=== PATIENT | male | born 1945 | race Two or more races ===

== ENCOUNTER 2025-04-21 10:11 | Inpatient (IN) | payer MEDICARE, MEDICAID ==
[~2025-04-21] VITALS: Ht 152.4 cm; Wt 52.1 kg
--- NOTE | 2025-04-21 10:42 | ED.PDOC ---
History of Present Illness HPI Comments 79-year-old male presents to the ER in a wheelchair being pushed by daughter and with prior medical history of transverse myelitis associated with the chief complaint of head discomfort. Daughter reports on the patient having sharp electric jolts on the left side of his head which has been worsening since the symptoms started. The electric jolts start when the patient eats, drinks, and/or talks. Daughter states on the patient falling more than usual. Patient did see a neurologist on 04/07/2025 and was informed to go to [facility]. Patient has had a loss of appetite due from the pain. Denies chills, fever, N/V/D, SOB, CP. No other associated symptoms, modifiers, recent injuries or sick contacts present at this time. Chief Complaint: Headache Time Seen by MD: 10:30 Reviewed Notes: Nurses Notes, Medications, Allergies Allergies: Coded Allergies: Gabapentin (Verified Allergy, Unknown, 04/21/25) Penicillins (Verified Allergy, Unknown, 04/21/25) Information Source: Patient Mode of Arrival: Wheelchair Severity: Moderate Timing: Came on: Suddenly Duration: Since onset Prehospital treatment: None Past Medical History Past Medical History (Other): transverse myelitis Surgical History: Denies all surgeries Family History Family History: Reviewed,noncontributory to illness, Unknown Social History Smoker: Non-Smoker Alcohol: Denies ETOH Use Drugs: Denies Drug Use Lives In: Home Constitutional: denies: chills, diaphoresis, fatigue, fever, malaise, sweats, weakness, others EENTM: denies: blurred vision, double vision, ear bleeding, ear discharge, ear drainage, ear pain, ear ringing, eye pain, eye redness, hearing loss, mouth pain, mouth swelling, nasal discharge, nose bleeding, nose congestion, nose pain, photophobia, tearing, throat pain, throat swelling, voice changes, others Respiratory: denies: cough, hemoptysis, orthopnea, SOB at rest, shortness of breath, SOB with excertion, stridor, wheezing, others Cardiovascular: denies: chest pain, dizzy spells, diaphoresis, Dyspnea on exertion, edema, irregular heart beat, left arm pain, lightheadedness, palpitations, PND, syncope, others Gastrointestinal: denies: abdomen distended, abdominal pain, blood streaked bowels, constipated, diarrhea, dysphagia, difficulty swallowing, hematemesis, melena, nausea, poor appetite, poor fluid intake, rectal bleeding, rectal pain, vomiting, others Genitourinary: denies: burning, dysuria, flank pain, frequency, hematuria, incontinence, penile discharge, penile sore, pain, testicle pain, testicle swelling, urgency, others Neurological: reports: others (Sharp electric jolts to the left side of the head); denies: dizziness, fainting, headache, left sided numbness, left sided weakness, numbness, paresthesia, pre-existing deficit, right sided numbness, right sided weakness, seizure, speech problems, tingling, tremors, weakness Musculoskeletal: denies: back pain, gout, joint pain, joint swelling, muscle pain, muscle stiffness, neck pain, others Integumetry: denies: bruises, change in color, change in hair/nails, dryness, laceration, lesions, lumps, rash, wounds, others Allergic/Immunocompromised: denies: Difficulty Healing, Frequent Infections, Hives, Itching, others Hematologic/Lymphatic: denies: anemia, blood clots, easy bleeding, easy bruising, swollen glands, others Endocrine: denies: excessive hunger, excessive sweating, excessive thirst, excessive urination, flushing, intolerance to cold, intolerance to heat, unexplained weight gain, unexplained weight loss, others Psychiatric: denies: anxiety, bipolar disorder, depression, hopeless, panic disorder, schizophrenia, sleepless, suicidal, others All Other Systems: Reviewed and Negative Physical Exam General Appearance: No Apparent Distress, Normal HEENT: Normal ENT Inspection, Pharynx Normal, TMs Normal Neck: Full Range of Motion, Non-Tender, Normal, Normal Inspection Respiratory: Chest Non-Tender, Lungs Clear, No Accessory Muscle Use, No Respiratory Distress, Normal Breath Sounds Cardiovascular: No Edema, No JVD, No Murmur, No Gallop, Normal Peripheral Pulses, Regular Rate/Rhythm Breast Exam: Deferred Gastrointestinal: No Organomegaly, Non Tender, No Pulsatile Mass, Normal Bowel Sounds, Soft Genitalia: Deferred Pelvic: Deferred Rectal: Deferred Extremities: No calf tenderness, Normal capillary refill, Normal inspection, Normal range of motion, Non-tender, No pedal edema Musculoskeletal : Apperance: Normal Neurologic: Alert, vending machine filler II-XII nml as Tested, No Motor Deficits, Normal Affect, Normal Mood, No Sensory Deficits Cerebellar Function: Normal Reflexes: Normal Skin: Dry, Normal Color, Warm Lymphatic: No Adenopathy Was a procedure done? Was a procedure done?: No Differential Dx Considerations may include: Trigeminal neuralgia, migraine, CVA X-Ray, Labs, Meds, VS Vital Signs Date Time Temp Pulse Resp B/P (MAP) Pulse Ox O2 Delivery O2 Flow Rate FiO2 04/21/25 10:15 97.8 50 16 154/63 95 97.8 Lab Test 04/21/25 13:06 04/21/25 10:46 Range/Units Troponin I High Sensitivity Pending 10 </=54 ng/L White Blood Count 7.8 4.4-10.8 10^3/uL Red Blood Count 5.86 4.5-5.90 10^6/uL Hemoglobin 16.7 13.5-17.5 g/dL Hematocrit 48.6 41.0-53.0 % Mean Corpuscular Volume 83.0 80.0-100.0 fL Mean Corpuscular Hemoglobin 28.4 28.0-32.0 pg Mean Corpuscular Hemoglobin Concent 34.3 32.0-36.0 g/dL Red Cell Distribution Width 14.8 H 11.8-14.3 % Platelet Count 221 140-450 10^3/uL Mean Platelet Volume 8.6 6.9-10.8 fL Neutrophils (%) (Auto) 75.7 37.0-80.0 % Lymphocytes (%) (Auto) 12.5 10.0-50.0 % Monocytes (%) (Auto) 8.9 0.0-12.0 % Eosinophils (%) (Auto) 1.5 0.0-7.0 % Basophils (%) (Auto) 1.4 0.0-2.0 % Neutrophils # (Auto) 5.9 1.6-8.6 10 ^3/uL Lymphocytes # (Auto) 1.0 0.4-5.4 10 ^3/uL Monocytes # (Auto) 0.7 0-1.3 10 ^3/uL Eosinophils # (Auto) 0.1 0-0.8 10 ^3/uL Basophils # (Auto) 0.1 0-0.2 10 ^3/uL Nucleated Red Blood Cells 0.2 % Sodium Level 140 136-145 mmol/L Potassium Level 4.0 3.5-5.1 mmol/L Chloride Level 106 98-107 mmol/L Carbon Dioxide Level 26 20-31 mmol/L Anion Gap 8 5-15 Blood Urea Nitrogen 7 L 9-23 mg/dL Creatinine 1.46 H 0.700-1.30 mg/dL Glomerular Filtration Rate Calc 49 >90 mL/min BUN/Creatinine Ratio 4.8 L 10.0-20.0 Serum Glucose 96 74-106 mg/dL Calcium Level 9.1 8.7-10.4 mg/dL Current Medications Medications (Trade) Dose Ordered Sig/Pily Route Start Time Stop Time Status Last Admin Sodium Chloride 1,000 ml @ 1,000 mls/hr Q1H ONCE IV 04/21/25 10:45 04/21/25 11:44 DC 04/21/25 10:45 Acetaminophen (Tylenol Tablet) 650 mg ONCE ONCE PO 04/21/25 10:45 04/21/25 10:55 DC 04/21/25 10:45 Ketorolac Tromethamine (Toradol Injection) 15 mg ONCE ONCE IV 04/21/25 10:45 04/21/25 10:55 DC 04/21/25 12:24 Time of 1ST Reevaluation: 11:00 Reevaluation 1ST: Unchanged Patient Education/Counseling: Diagnosis, Treatment, Prognosis Family Education/Counseling: Diagnosis, Treatment, Prognosis SEPSIS Sepsis Screen Date sepsis recognized/suspect: Apr 21, 2025 Time Sepsis recognized/suspect: 1015 Recent Procedure: No On Antibiotic Therapy: No Respiratory Rate >20: No Heart Rate >90: No Temp<36 C (96.8 F) or >38.3 C: No SBP <90 or MAP <65 mmHG: No New Acute Mental Status Change: No Is the patient on CPAP, BIPAP,: No Physician Orders Urinalysis (04/21/25 10:36) Chest Portable (04/21/25 10:36) Head Without Contrast (04/21/25 10:36) Electrocardigram (04/21/25 10:36) Troponin-I Hs (04/21/25 11:36) Troponin-I Hs (04/21/25 13:36) Electrocardigram (04/21/25 11:36) Electrocardigram (04/21/25 13:36) Vital Signs Date Time Temp Pulse Resp B/P (MAP) Pulse Ox O2 Delivery O2 Flow Rate FiO2 04/21/25 10:15 97.8 50 16 154/63 95 97.8 Laboratory Tests Test 04/21/25 10:46 White Blood Count 7.8 10^3/uL (4.4-10.8) Medications Medications Dose Ordered Sig/Pily Route Start Time Stop Time Status Last Admin Dose Admin Acetaminophen 650 mg ONCE ONCE PO 04/21/25 10:45 04/21/25 10:55 DC 04/21/25 10:45 Ketorolac Tromethamine 15 mg ONCE ONCE IV 04/21/25 10:45 04/21/25 10:55 DC 04/21/25 12:24 Sodium Chloride 1,000 ml @ 1,000 mls/hr Q1H ONCE IV 04/21/25 10:45 04/21/25 11:44 DC 04/21/25 10:45 Departure 1 Departure Time of Disposition: 13:39 (Patient with worsening left-sided facial pain, worsening disability and inability to be. We will admit patient for further workup and expert consultation) Impression: Primary Impression: Left facial pain Additional Impressions: Left-sided weakness Generalized weakness Disposition: ADMITTED INPATIENT Admit to: Med Surg Condition: Serious Critical Care Note Critical Care Time?: Yes Critical care comment: Concern for CVA Authorized and Performed by: Sylvia Keyes MD Total critical care time: Approximately 38 minutes Due to a high probability of clinically significant, life threatening deterioration, the patient required my highest level of preparedness to intervene emergently and I personally spent this critical care time directly and personally managing the patient. This critical care time included obtaining a history; examining the patient; pulse oximetry; ordering and review of studies; arranging urgent treatment with development of a management plan; evaluation of patient's response to treatment; frequent reassessment; and, discussions with other providers. This critical care time was performed to assess and manage the high probability of imminent, life-threatening deterioration that could result in multi-organ failure. It was exclusive of separately billable procedures and treating other patients and teaching time. Please see my other sections and the rest of the note for further information on patient assessment and treatment. Stability Stability form required: No I personally scribed for SYLVIA KEYES MD ([email or web address]) on 04/21/25 at 10:42. Electronically submitted by Tejas Munson ([email or web address]). SYLVIA KEYES MD Apr 21, 2025 10:42
[2025-04-21] MEDS: ACETAMINOPHEN 325 MG TAB PO ONE (10:45)
[2025-04-21] MEDS: SODIUM CHLORIDE 0.9% 1,000 ML IV ONE (10:45)
[2025-04-21 11:11] LABS: Hematocrit 48.6 % (41.0-53.0); Hemoglobin 16.7 g/dL (13.5-17.5); Mean Corpuscular Hemoglobin 28.4 pg (28.0-32.0); Mean Corpuscular Volume 83.0 fL (80.0-100.0); Nucleated Red Blood Cells % 0.2 %
--- NOTE | 2025-04-21 11:16 | DVH ---
CHEST RADIOGRAPH Indication: left facial pain and weakness Technique: Single frontal view of the chest was obtained COMPARISON: CT CHEST LUNG CANCER SCREEN BASELINE / ANNUAL on DOS: 10/28/24, CT CHEST SCREEN BASELINE / ANNUAL on DOS: 10/25/23 FINDINGS: Lines and Tubes: None Lungs: Clear Pleura: No effusion. No pneumothorax. Cardiomediastinal contours: Unremarkable Bones: Unremarkable IMPRESSION: No acute disease.
[2025-04-21 11:20] LABS: Chloride 106 mmol/L (98-107); Potassium 4.0 mmol/L (3.5-5.1); Sodium 140 mmol/L (136-145)
[2025-04-21 11:21] LABS: Anion Gap 8 (5-15); Calcium 9.1 mg/dL (8.7-10.4); Carbon Dioxide 26 mmol/L (20-31)
[2025-04-21 11:26] LABS: BUN/Creatinine Ratio 4.8 (10.0-20.0); Blood Urea Nitrogen 7 mg/dL (9-23); Glucose 96 mg/dL (74-106)
--- NOTE | 2025-04-21 11:43 | DVH ---
CLINICAL HISTORY: left facial pain and weakness TECHNIQUE: Helical scanning was performed of the head from the skull base to the vertex. Multiplanar reconstructions were performed. This exam was performed according to our departmental dose optimizat ion program. Up-to-date CT equipment and radiation dose reduction techniques are utilized as appropri ate. CTDI 52.3 DLP 1029 COMPARISON: MR BRAIN WO/W on DOS: 01/08/25 FINDINGS: There is no evidence for acute intracranial hemorrhage, acute ischemic changes, mass, mass effect, or extra-axial fluid collection. There is no hydrocephalus or midline shift. There is no effacement of the cerebral sulci and basal subarachnoid cisterns. The luis-white matter differentiation is well meredith ntained. There is mild brain volume loss. There is mild chronic small vessel ischemic changes. The imaged paranasal sinuses are clear. IMPRESSION: NO ACUTE INTRACRANIAL ABNORMALITY SEEN.
[2025-04-21] MEDS: KETOROLAC TROMETH 30 MG/ML 1ML VIAL IV ONE ×2 (12:24→17:40)
[2025-04-21 17:40] VITALS: PULSE 62; RESP 17; O2SAT 97
[2025-04-21] MEDS: ONDANSETRON HCL 4 MG/2 ML VIAL IV ONE (21:00)
[2025-04-21] MEDS ORDERED: ONDANSETRON HCL 4 MG/2 ML VIAL IV PRN (21:00)
[2025-04-21] MEDS: PANTOPRAZOLE 40 MG/10 ML VIAL INJ IV ONE (21:00)
[2025-04-21] MEDS ORDERED: KETOROLAC TROMETH 30 MG/ML 1ML VIAL IV PRN (21:00)
[2025-04-21] MEDS: SODIUM CHLORIDE 0.9% 1,000 ML IV SCH (21:00)
--- NOTE | 2025-04-21 21:39 | DVHHPRES ---
History of Present Illness Resident Creating Document: LINWOOD ROBERTS RESIDENT History of Present Illness Mr. Barnes is a 79 year old male with prior medical history of transverse myelitis wheelchair bound, ischemic stroke, and hyperlipidemia, who presents to the ED with chief complaint of intense headache. The patient states that approximately three weeks ago he had spontaneous onset of intense sharp, electric pain in the left frontotemporal region. He describes this pain as intermittent, intensity 10/10, nonradiating, aggravated by eating, talking, and drinking, per the patient, rendering him unable to eat for the last 3 days. He states the pain lasts approximately up to two minutes, and occurs every day multiple times a day. Patient also reports unintentional weight loss of 30 lb in the past three months. Denies nausea, vomiting, changes in vision, facial weakness, upper extremity weakness, tearing from left eye, and other symptoms. On evaluation in the ED, patient was stable but hypertensive. Initial labs show CBC within normal range and BMP significant for creatinine 1.46. Chest xray shows no acute disease. Head CT shows no acute intracranial abnormality. He was started on IV fluids and IV pain regimen, and was admitted for further work up and monitoring. Cardiovascular: hyperipidemia [employer]ISSIONER CONSERVATION OF RESOURCES: Other (Transverse myelitis) Past Surgical History: Other (Bilateral shoulder surgery 25 years ago) Smoke: <1 pack per day (Currently smokes 5 cigarettes a day down from 1 pack, has smoked were over 62 years) ALCOHOL: rare Drugs: Marijuana (Refers occasional marijuana use over 50 years ago) Lives: Alone Domestic Violence: Neg Review of Systems Review of Systems Constitutional: Decreased ability to eat due it triggering the pain, Denies weight loss, fever and chills. HEENT: Denies changes in vision and hearing. Respiratory: Denies shortness of breath and cough Cardiovascular: Denies chest discomfort or palpitations GI: Denies abdominal distention, abdominal pain, diarrhea : Denies dysuria and urinary frequency. Musculoskeletal: Refers localized back pain Skin: Denies rash and pruritus. Neurological: Refers persistent intermittent electric like headaches denies dizziness, vertigo, vision changes Allergies: Coded Allergies: Gabapentin (Verified Allergy, Unknown, 04/21/25) Penicillins (Verified Allergy, Unknown, 04/21/25) Medications Current Medications Medications Dose Ordered Sig/Pily Route Start Time Stop Time Status Last Admin Dose Admin Enoxaparin Sodium 40 mg DAILY SC 04/22/25 10:00 UNV Sodium Chloride 1,000 ml @ 75 mls/hr [id number] IV 04/21/25 21:00 UNV Dexamethasone Sodium Phosphate 10 mg/Dextrose 51 ml @ 204 mls/hr DAILY IV 04/22/25 10:00 UNV Pantoprazole Sodium 40 mg DAILY IV 04/22/25 10:00 UNV Ondansetron HCl 4 mg Q6HPRN PRN IV 04/21/25 21:00 UNV Ketorolac Tromethamine 15 mg Q6HPRN PRN IV 04/21/25 21:00 04/26/25 20:59 UNV Exam Vital Signs Vital Signs Date Time Temp Pulse Resp B/P (MAP) Pulse Ox O2 Delivery O2 Flow Rate FiO2 04/21/25 17:40 62 17 97 Room Air* 0 21 04/21/25 17:40 98.2 151/83 (105) 98.2 Exam General: The patient alert and oriented in person place and time. Patient following commands HEENT: Normocephalic, atraumatic, normal reactive pupils, EOM intact, pink conjunctiva, pink moist mucous membrane, no pain on palpation of head Respiratory/pulmonary: Bilateral chest expansion, no pain on palpation of chest wall, clear lungs bilaterally, vesicular murmurs present in almost all lung [place], no associated crackles or wheezes. Cardiovascular: Normal RRR, normal S1 and S2, no murmurs Abdomen: Abdomen nondistended, normal bowel sounds, soft, there is no pain to palpation in any of the abdominal quadrants, no palpable masses. Extremities: No deformities, there is no peripheral edema present at the lower extremities, pulses are present Skin: No rashes or pruritus, there is no sacral edema present at this time. Neurological: Intact cranial nerves with no focal neurologic deficits, intact sensation of lower extremities, weakness of lower extremities Labs/Xrays Labs Test 04/21/25 21:13 04/21/25 16:09 04/21/25 13:06 04/21/25 10:46 Range/Units Troponin I High Sensitivity 10 </=54 ng/L White Blood Count 7.8 4.4-10.8 10^3/uL Red Blood Count 5.86 4.5-5.90 10^6/uL Hemoglobin 16.7 13.5-17.5 g/dL Hematocrit 48.6 41.0-53.0 % Mean Corpuscular Volume 83.0 80.0-100.0 fL Mean Corpuscular Hemoglobin 28.4 28.0-32.0 pg Mean Corpuscular Hemoglobin Concent 34.3 32.0-36.0 g/dL Red Cell Distribution Width 14.8 H 11.8-14.3 % Platelet Count 221 140-450 10^3/uL Mean Platelet Volume 8.6 6.9-10.8 fL Neutrophils (%) (Auto) 75.7 37.0-80.0 % Lymphocytes (%) (Auto) 12.5 10.0-50.0 % Monocytes (%) (Auto) 8.9 0.0-12.0 % Eosinophils (%) (Auto) 1.5 0.0-7.0 % Basophils (%) (Auto) 1.4 0.0-2.0 % Neutrophils # (Auto) 5.9 1.6-8.6 10 ^3/uL Lymphocytes # (Auto) 1.0 0.4-5.4 10 ^3/uL Monocytes # (Auto) 0.7 0-1.3 10 ^3/uL Eosinophils # (Auto) 0.1 0-0.8 10 ^3/uL Basophils # (Auto) 0.1 0-0.2 10 ^3/uL Nucleated Red Blood Cells 0.2 % Sodium Level 140 136-145 mmol/L Potassium Level 4.0 3.5-5.1 mmol/L Chloride Level 106 98-107 mmol/L Carbon Dioxide Level 26 20-31 mmol/L Anion Gap 8 5-15 Blood Urea Nitrogen 7 L 9-23 mg/dL Creatinine 1.46 H 0.700-1.30 mg/dL Glomerular Filtration Rate Calc 49 >90 mL/min BUN/Creatinine Ratio 4.8 L 10.0-20.0 Serum Glucose 96 74-106 mg/dL Hemoglobin A1c 5.5 <5.7 % A1C Calcium Level 9.1 8.7-10.4 mg/dL SEPSIS Sepsis Screen Date sepsis recognized/suspect: Apr 21, 2025 Time Sepsis recognized/suspect: 1014 Recent Procedure: No On Antibiotic Therapy: No Respiratory Rate >20: No Heart Rate >90: No Temp<36 C (96.8 F) or >38.3 C: No SBP <90 or MAP <65 mmHG: No New Acute Mental Status Change: No Is the patient on CPAP, BIPAP,: No Physician Orders Complete Blood Count (04/22/25 04:00) Thyroid Stimulating Hormone (04/21/25 20:11) Urinalysis (04/21/25 20:11) Drug Screen (04/21/25 20:11) Vitamin B12 (04/21/25 20:11) Vitamin D, 25-Hydroxy (04/21/25 20:11) PTPTT (04/21/25 20:11) Magnesium (04/21/25 20:11) Phosphorus (04/21/25 20:11) Admit (04/21/25 20:49) Code Status (04/21/25:49) Vital Signs .PER UNIT PROTOCOL (04/21/25 20:49) Review Orders With Adm.Md (04/21/25 20:49) Notify Md Of Changes From Base (04/21/25 20:49) Advance Directive (04/21/25 20:49) Basic Metabolic Panel (04/22/25 04:00) Lipid Panel (04/21/25 20:49) Patient Condition (04/21/25 20:49) Allergies (04/21/25 20:49) Stat Ekg For Chest Pain (04/21/25 20:49) Notify Md Of Changes From Base (04/21/25 20:49) Emergency Dysrhythmia Protocol (04/21/25 20:49) Rhythm Strips Once Every Shift (04/21/25 20:49) Enoxaparin Sodium (Lovenox) (04/22/25 10:00) Sodium Chloride 0.9% (04/21/25 21:00) Dexamethasone Injection (Decadron Inject (04/21/25 21:00) Dexamethasone Injection (Decadron Inject (04/22/25 10:00) Pantoprazole (Protonix) (04/21/25 21:00) Pantoprazole (Protonix) (04/22/25 10:00) Ondansetron Hcl (Zofran) (04/21/25 21:00) Ondansetron Hcl (Zofran) (04/21/25 21:00) Ketorolac Injection (Toradol Injection) (04/21/25 21:00) Ketorolac Injection (Toradol Injection) (04/21/25 21:00) * Neurology Consult (04/21/25 21:33) Hepatic Panel (04/21/25 21:33) Vital Signs Date Time Temp Pulse Resp B/P (MAP) Pulse Ox O2 Delivery O2 Flow Rate FiO2 04/21/25 17:40 62 17 97 Room Air* 0 21 04/21/25 17:40 98.2 62 17 151/83 (105) 97 98.2 Laboratory Tests Test 04/21/25 10:46 White Blood Count 7.8 10^3/uL (4.4-10.8) Medications Medications Dose Ordered Sig/Pily Route Start Time Stop Time Status Last Admin Dose Admin Acetaminophen 650 mg ONCE ONCE PO 04/21/25 10:45 04/21/25 10:55 DC 04/21/25 10:45 650 MG Ketorolac Tromethamine 15 mg ONCE ONCE IV 04/21/25 10:45 04/21/25 10:55 DC 04/21/25 12:24 15 MG Ketorolac Tromethamine 15 mg ONCE ONCE IV 04/21/25 17:30 04/21/25 17:31 DC 04/21/25 17:40 15 MG Sodium Chloride 1,000 ml @ 1,000 mls/hr Q1H ONCE IV 04/21/25 10:45 04/21/25 11:44 DC 04/21/25 10:45 1,000 MLS/HR Assessment/Plan Assessment/Plan Assessment and Plan: Intractable Headache, rule out trigeminal neuralgia -Acetaminophen 650 mg p.o. once -Toradol 15 mg IV q.6 hours PRN -Dexamethasone 10 mg IV daily -Zofran 4 mg IV q.6 hours PRN -Neurology has been consulted -Completed head CT which showed no acute intracranial findings Dehydration -NS IV 1000 cc bolus -NS IV maintenance fluids 75 cc per hour Transverse myelitis, wheelchair-bound History of stroke -Avoid triptans due to history of CVA. -Continue aspirin and atorvastatin Hyperlipidemia -Continue atorvastatin Tobacco use -I have counseled the patient on the importance of complete smoking cessation as it is detrimental to his health for over 13 minutes. Diet: Regular DVT prophylaxis: Lovenox 40 mg sc daily GI prophylaxis: Protonix 40 mg IV daily Case discussed with Dr. Dykes Goals of care discussed with the patient and his daughter for over 25 minutes. FULL CODE. Plan discussed with: Patient, Daughter, Other (Nurses) My Orders Orders - LINWOOD ROBERTS RESIDENT Procedure Category Date Status Time Complete Blood Count LAB 04/22/25 Verified 04:00 Thyroid Stimulating LAB 04/21/25 In Process Hormone 20:11 Urinalysis LAB 04/21/25 Logged 20:11 Drug Screen LAB 04/21/25 Logged 20:11 Vitamin B12 LAB 04/21/25 In Process 20:11 Vitamin D, 25-Hydroxy LAB 04/21/25 In Process 20:11 PTPTT LAB 04/21/25 In Process 20:11 Magnesium LAB 04/21/25 In Process 20:11 Phosphorus LAB 04/21/25 In Process 20:11 Admit ADMIT 04/21/25 Transmitted 20:49 Code Status CODE 04/21/25 Transmitted 20:49 Vital Signs [facility] 04/21/25 In Process 20:49 Review Orders With [facility] 04/21/25 In Process Adm.Md 20:49 Notify Of Changes [facility] 04/21/25 In Process From Base 20:49 Advance Directive [facility] 04/21/25 In Process 20:49 Basic Metabolic Panel LAB 04/22/25 Verified 04:00 Lipid Panel LAB 04/21/25 Logged 20:49 Patient Condition ORDERS 04/21/25 Transmitted 20:49 Allergies [facility] 04/21/25 In Process 20:49 Stat Ekg For Chest [facility] 04/21/25 In Process Pain 20:49 Notify Of Changes [facility] 04/21/25 In Process From Base 20:49 Emergency Dysrhythmia [facility] 04/21/25 In Process Protocol 20:49 Rhythm Strips Once [facility] 04/21/25 In Process Every Shift 20:49 Enoxaparin Sodium [facility] 04/22/25 Logged (Lovenox) 10:00 Sodium Chloride 0.9% PHA 04/21/25 Logged 21:00 Dexamethasone PHA 04/21/25 Logged Injection (Decadron 21:00 Dexamethasone PHA 04/22/25 Logged Injection (Decadron 10:00 Pantoprazole PHA 04/21/25 Logged (Protonix) 21:00 Pantoprazole PHA 04/22/25 Logged (Protonix) 10:00 Ondansetron Hcl PHA 04/21/25 Logged (Zofran) 21:00 Ondansetron Hcl PHA 04/21/25 Logged (Zofran) 21:00 Ketorolac Injection PHA 04/21/25 Logged (Toradol Injection) 21:00 Ketorolac Injection PHA 04/21/25 Logged (Toradol Injection) 21:00 * Neurology Consult CONS 04/21/25 Transmitted 21:33 Hepatic Panel LAB 04/21/25 Logged 21:33 Date of Service: Apr 21, 2025 Billing Provider: FRANCOIS DYKES MD Common Visit Codes: [id number] INP/OBS CARE (HIGH) Secondary Visit Codes: [id number] CARE PLAN 30 MINUTES LINWOOD ROBERTS RESIDENT Apr 21, 2025 21:39 EDUARDO COVINGTON RESIDENT Apr 22, 2025 04:06
[2025-04-21 21:49] LABS: INR 1.03 (0.9-1.15); Magnesium 2.0 mg/dL (1.6-2.6); Partial Thromboplastin Time 26.1 SEC (24.5-34.5); Prothrombin Time 10.9 sec (9.3-11.8)
[2025-04-21 22:06] LABS: Triglycerides 101 mg/dL (< 150)
[2025-04-21 22:08] LABS: Cholesterol 160 mg/dL (< 200); HDL Cholesterol 54 mg/dL (40-59)
[2025-04-21 23:15] LABS: Alanine Aminotransferase 17.0 U/L (7-40); Albumin 4.0 g/dL (3.2-4.8); Alkaline Phosphatase 64.0 U/L (46-116); Bilirubin, Direct 0.2 mg/dL (<0.3); Bilirubin, Total 0.4 mg/dL (0.2-1.0); Total Protein 6.5 g/dL (5.7-8.2)
[2025-04-22] VITALS (7 sets, daily range): BP systolic 106–149; BP diastolic 49–88; PULSE 60–88; RESP 17–18; TEMP 97.5–98.8; O2SAT 93–99
[2025-04-22] MEDS: KETOROLAC TROMETH 30 MG/ML 1ML VIAL IV ONE (01:20)
[2025-04-22] MEDS: ERGOCALCIFEROL 50,000 UNIT(1.25MG) CAP PO SCH (06:02)
[2025-04-22] MEDS: ATORVASTATIN 20 MG TAB PO ONE (06:02)
[2025-04-22 08:11] LABS: Hematocrit 45.1 % (41.0-53.0); Hemoglobin 15.4 g/dL (13.5-17.5); Mean Corpuscular Hemoglobin 28.3 pg (28.0-32.0); Mean Corpuscular Volume 82.9 fL (80.0-100.0); Nucleated Red Blood Cells % 0.0 %
[2025-04-22 08:35] LABS: Potassium 4.2 mmol/L (3.5-5.1)
[2025-04-22 08:39] LABS: Carbon Dioxide 23 mmol/L (20-31)
[2025-04-22 08:44] LABS: BUN/Creatinine Ratio 9.6 (10.0-20.0); Blood Urea Nitrogen 13 mg/dL (9-23); Glucose 103 mg/dL (74-106)
[2025-04-22 08:52] LABS: Calcium 8.7 mg/dL (8.7-10.4); Chloride 107 mmol/L (98-107)
[2025-04-22 08:53] LABS: Anion Gap 11 (5-15); Sodium 141 mmol/L (136-145)
[2025-04-22] MEDS: PANTOPRAZOLE 40 MG/10 ML VIAL INJ IV SCH (10:49)
[2025-04-22] MEDS: ENOXAPARIN SOD 30 MG/0.3 ML SYRINGE SC SCH (10:50)
--- NOTE | 2025-04-22 11:14 | DVHPNRES ---
Progress Note Date Seen: Apr 22, 2025 Resident Creating Document: VEDA NEWBY RESIDENT Medical Necessity Reason Pt with a Central, PICC or Fol: No Subjective Review of Systems Mr. Barnes is a 79 year old male with prior medical history of transverse myelitis wheelchair bound, ischemic stroke, and hyperlipidemia, who presents to the ED with chief complaint of intense headache. The patient states that approximately three weeks ago he had spontaneous onset of intense sharp, electric pain in the left frontotemporal region. He describes this pain as intermittent, intensity 10/10, nonradiating, aggravated by eating, talking, and drinking, per the patient, rendering him unable to eat for the last 3 days. He states the pain lasts approximately up to two minutes, and occurs every day multiple times a day. Patient also reports unintentional weight loss of 30 lb in the past three months. Denies nausea, vomiting, changes in vision, facial weakness, upper extremity weakness, tearing from left eye, and other symptoms. On evaluation in the ED, patient was stable but hypertensive. Initial labs show CBC within normal range and BMP significant for creatinine 1.46. Chest xray shows no acute disease. Head CT shows no acute intracranial abnormality. He was started on IV fluids and IV pain regimen, and was admitted for further work up and monitoring. Cardiovascular: hyperipidemia [employer]: Other (Transverse myelitis) Past Surgical History: Other (Bilateral shoulder surgery 25 years ago) Smoke: <1 pack per day (Currently smokes 5 cigarettes a day down from 1 pack, has smoked were over 62 years) ALCOHOL: rare Drugs: Marijuana (Refers occasional marijuana use over 50 years ago) Lives: Alone Domestic Violence: Neg The patient was seen and examined at the bedside today. Overnight events were reviewed. The patient complains of excruciating pain while chewing food. The patient is unable to eat food. The patient requested some medications for his acute pain management. The daughter was at bedside, all the questions were answered and treatment plan was discussed with the daughter. Objective vital signs Vital Sign Date Time Temp Pulse Resp B/P (MAP) Pulse Ox O2 Delivery O2 Flow Rate FiO2 04/22/25 01:38 97.5 88 17 149/88 (108) 99 97.5 04/22/25 01:38 Room Air* 0 21 Total Intake and Output 04/21/25 04/21/25 04/22/25 15:00 23:00 07:00 Intake Total 450 ml Balance 450 ml medications Current Medications Medications Dose Ordered Sig/Pily Route Start Time Stop Time Status Last Admin Dose Admin Enoxaparin Sodium 30 mg DAILY SC 04/22/25 10:00 04/22/25 10:50 30 MG Sodium Chloride 1,000 ml @ 75 mls/hr [id number] IV 04/21/25 21:00 Dexamethasone Sodium Phosphate 10 mg/Dextrose 51 ml @ 204 mls/hr DAILY IV 04/22/25 10:00 Pantoprazole Sodium 40 mg DAILY IV 04/22/25 10:00 04/22/25 10:49 40 MG Ondansetron HCl 4 mg Q6HPRN PRN IV 04/21/25 21:00 Ketorolac Tromethamine 15 mg Q6HPRN PRN IV 04/21/25 21:00 04/26/25 20:59 Ergocalciferol 50,000 unit Q7D PO 04/22/25 04:00 04/22/25 06:02 50,000 UNIT Aspirin 81 mg DAILY PO 04/22/25 10:00 Atorvastatin Calcium 40 mg HS PO 04/22/25 22:00 Examination Pt is lying on bed General Appearance: Alert, Oriented X3, Cooperative, Mild distress HEENT: Otoscopic examination reveals tympanic membrane normal, no discharge, no erythema. Atraumatic, Mucous membranes moist/pink Respiratory: Clear to auscultation, Normal air movement, No added sounds Cardiovascular: Regular rate, Normal S1, Normal S2, No murmurs Abdominal/ : Active bowel sounds, Soft, no distention, no tenderness Extremities: No edema, Normal pulses, No tenderness/swelling Skin: No Significant rash, except past surgical scars Neuro: Normal speech, upper extremity motor strength normal, altered sensation in the ophthalmic dermatome and temporal area noted, Right lower extremity strength 1+, left lower extremity strength is 0. Cranial nerves intact. Psych/Mental Status: Mental status NL, Mood NL Nurse was there as store worker during examination laboratory and microbiology Laboratory Tests 04/22/25 07:32 Test 04/22/25 07:32 Range/Units Serum Glucose 103 74-106 mg/dL Labs and/or images reviewed: Labs reviewed by me, Image(s) reviewed by me Problem List/Assessment/Plan Problem List/Assessment/Plan Intractable Headache, likely due to trigeminal neuralgia -Acetaminophen 650 mg p.o. once -Toradol 15 mg IV q.6 hours PRN -Dexamethasone 1 dose given -Zofran 4 mg IV q.6 hours PRN -Completed head CT which showed no acute intracranial findings - carbamazepine 100 mg b.i.d. -Neurology consult appreciated,recommendations: -started carbamazepine 100 mg b.i.d., higher dose discontinued due to concern for possible dizziness. -continue pain management with Tylenol, NSAIDs -brain MRI:No acute cerebrovascular ischemia. Periventricular white matter changes along the callosal septal interface, possibly sequela demyelinating disease. Correlate with clinical history. MRI brain with contrast recommended to further characterize.To evaluate the trigeminal nerve, recommend dedicated MRI brain with dedicated thin section imaging of the trigeminal nerve, with and without contrast,Small bilateral mastoid effusions.Mild global cerebral volume loss. History of Transverse myelitis, wheelchair-bound History of stroke -Continue aspirin and atorvastatin Hyperlipidemia -Continue atorvastatin Tobacco use -I have counseled the patient on the importance of complete smoking cessation as it is detrimental to his health for over 13 minutes. Diet: Regular DVT prophylaxis: Lovenox 40 mg sc daily GI prophylaxis: Protonix 40 mg IV daily Case discussed with Dr. Martinez Goals of care discussed with the patient and his daughter for over 25 minutes. FULL CODE. Plan discussed with: Patient, Daughter, Other (Nurses) Plan discussed with: Patient, Other (RN) Date of Service: Apr 22, 2025 Billing Provider: REJI MARTINEZ MD Common Visit Codes: 10179-[id number] INP/OBS CARE(HIGH) Secondary Visit Codes: 99971-[id number] CARE PLAN 30 MINUTES VEDA NEWBY RESIDENT Apr 22, 2025 11:14 SADIA ELLER RESIDENT Apr 22, 2025 21:05 REJI MARTINEZ MD Apr 26, 2025 00:06
[2025-04-22 12:13] LABS: Protein, Urine 36.3 mg/dL (1-14)
[2025-04-22 12:18] LABS: Amphetamine Screen, Urine Neg (NEGATIVE); Barbiturate Scree,Urine Neg (NEGATIVE); Benzodiazephine Screen, Urine Neg (NEGATIVE); Cannabinoid Screen, Urine Neg (NEGATIVE); Cocaine Screen, Urine Neg (NEGATIVE); Opiate Scree,Urine Neg (NEGATIVE); Phencyclidine Screen, Urine Neg (NEGATIVE)
[2025-04-22 12:19] LABS: Urine Protein, UAD TRACE (Negative)
--- NOTE | 2025-04-22 14:36 | DVHCONRES ---
Date Seen: Apr 22, 2025 Resident Creating Document: LEIGH GREGORY RESIDENT Referring Physician Dr. Jung Reason for Consultation Intractable headache likely trigeminal neuralgia History of Present Illness This is a 79-year-old male with past medical history of ischemic stroke, dyslipidemia, transverse myelitis wheelchair-bound since 2018. The patient presented to the ED with chief complaint of left-sided frontotemporal shooting pain. Patient described the pain as shooting/stabbing pain at the left frontotemporal region that is described as electric shocks that last very few seconds. Patient rates the pain as 10/10 on the pain scale and states that the pain is episodic, comes and goes. The patient also reports that the pain is localized at the left frontotemporal region with no specific pattern of radiation. The patient also reports that the pain is sometimes precipitated by eating or drinking but not talking at all. The patient states that when the electric shock type of pain occurs it lasts approximately 5 seconds and then can take hours to come back. The patient states that he has been dealing with this pain for the past three weeks. Upon admission, CBC and BNP were grossly unremarkable. Chest x-ray was grossly unremarkable with no evidence of consolidations and CT scan of the head without contrast showed no acute intracranial abnormality but did showed previous old ischemic changes. The patient denies history of migraines or headaches in the past, denies photophobia, phonophobia or any other possible symptoms of aura. Upon my examination, patient has bilateral lower extremity weakness. There is inability to raise the right lower extremity and the left lower extremity patient is able to raised with a lot of difficulty and weakness. Bilateral upper extremities have symmetrical force with no evidence of weakness or sensory deficits. Patient has intact sensibility in bilateral face and no motor deficits in his face as well. Addendum: I have seen and examined station, his daughter is in the room with him. He is alert and fully oriented. For three weeks, he has intense pain in the right temporal head region that lasts for sec, but this happens several in the role, the pain shoots to close by areas and is triggered by chewing, swallowing, drinking. He has no new focal weakness numbness. He saw Dr. Cross, a neurologist in the [facility], and he has been on Tegretol 100 mg b.i.d. which did not touch the symptoms, or cause side effects Because of weakness in the lower extremities, with a right-sided more affected, the patient was seen in the [facility] and was said to have transverse myelitis, the patient has been wheelchair-bound since 2018 Many years ago, the patient was said to have stroke, and he was treated in the [facility], (I can not confirm with our [employer]). He and the family do not remember stroke symptoms We will increased his Tegretol two 200 mg b.i.d., and has been advised to follow with his neurologist on discharge Past Medical History History of transverse myelitis wheelchair-bound since 2018. Hyperlipidemia Previous ischemic strokes Past Surgical History Bilateral shoulder surgery 25 years ago Family History: FH: cancer G8 FATHER G8 BROTHER Family History Noncontributory Social History Patient states that is smoked less than one pack per day, currently smoking five cigarettes a day. Patient also reports doing marijuana for the past 50 years. Patient reports very occasional alcohol intake. Allergies: Coded Allergies: Gabapentin (Verified Allergy, Unknown, 04/21/25) Penicillins (Verified Allergy, Unknown, 04/21/25) Home Meds Active Scripts Atorvastatin Calcium (ATORVASTATIN CALCIUM) 20 Mg Tab, 20 MG PO HS for 30 Days, #30 TAB Prov:SADIA ELLER 04/23/25 Aspirin (Aspirin Low Dose) 81 Mg Tab, 81 MG PO DAILY for 30 Days, #30 TAB Prov:SADIA ELLER 04/23/25 Ergocalciferol (VITAMIN D 98438 UNIT) 50,000 [place], [address] UNIT PO QWEEKLY for 56 Days, #8 CAP 0 Refills Prov:SADIA ELLER 04/23/25 Carbamazepine (Carbamazepine) 200 Mg Tab, 200 MG PO BID for 30 Days, #60 TAB 0 Refills Prov:SADIA ELLER 04/23/25 Current Medications Current Medications Medications (Trade) Dose Ordered Sig/Pily Route PRN Reason Start Time Stop Time Status Last Admin Enoxaparin Sodium (Lovenox) 30 mg DAILY SC 04/22/25 10:00 04/22/25 10:50 Sodium Chloride 1,000 ml @ 75 mls/hr [id number] IV 04/21/25 21:00 Dexamethasone Sodium Phosphate 10 mg/Dextrose 51 ml @ 204 mls/hr DAILY IV 04/22/25 10:00 Pantoprazole Sodium (Protonix) 40 mg DAILY IV 04/22/25 10:00 04/22/25 10:49 Ondansetron HCl (Zofran) 4 mg Q6HPRN PRN IV NAUSEA / VOMITING 04/21/25 21:00 Ketorolac Tromethamine (Toradol Injection) 15 mg Q6HPRN PRN IV MODERATE PAIN (4-6 PAIN SCALE) 04/21/25 21:00 04/26/25 20:59 Ergocalciferol (Vitamin D 50,000 Unit) 50,000 unit Q7D PO 04/22/25 04:00 04/22/25 06:02 Aspirin 81 mg DAILY PO 04/22/25 10:00 Atorvastatin Calcium (Lipitor) 40 mg HS PO 04/22/25 22:00 Carbamazepine (TEGretol TABLET) 400 mg BID PO 04/22/25 22:00 Review of Systems ROS Constitutional: Denies weight loss, fever and chills. HEENT: Reports left-sided headache/electric shock type of pain lasting few seconds in episodic manner. Denies changes in vision and hearing. Respiratory: Denies shortness of breath and cough Cardiovascular: Denies chest discomfort or palpitations GI: Denies abdominal pain, nausea, vomiting and diarrhea. : Denies dysuria and urinary frequency. Musculoskeletal: Reports inability to raise the right lower extremity and very weak in the left lower extremity as well (chronic). Denies myalgias and joint pain Skin: Denies rash and pruritus. Neurological: Denies dizziness, headache, vision or hearing problems Vital Signs Vital Signs Date Time Temp Pulse Resp B/P (MAP) Pulse Ox O2 Delivery O2 Flow Rate FiO2 04/22/25 01:38 97.5 88 17 149/88 (108) 99 97.5 04/22/25 01:38 Room Air* 0 21 Physical Exam Physical Examination General: Patient alert and oriented in person, place and time. Patient following commands. HEENT: Normocephalic, atraumatic, moist mucous membranes Respiratory/pulmonary: Clear lungs bilaterally, no associated crackles or wheezes. Cardiovascular: Normal heart sounds S1 and S2 with no associated murmurs Abdomen: Abdomen nondistended, there is no pain to palpation in any of the abdominal quadrants, no palpable masses. Extremities: There is significant inability to raise the right lower extremity. There is also weakness in the left lower extremity as well but patient is able to raise it with difficulty. Peripheral Pulses: 3+ Radial (R). 3+ Radial (L). 3+ Dorsalis pedis (R). 3+ Dorsalis pedis(L) Skin: No rashes or pruritus, there is no sacral edema present at this time. Neurological: Intact cranial nerves with no focal neurologic deficits. Bilateral upper extremities has symmetrical force and sensory. Bilateral face with no sensory deficits or weakness at this time. Labs/Diagnostic Data Labs Test 04/22/25 10:30 04/22/25 07:32 04/21/25 21:13 04/21/25 16:09 Range/Units Urine Color Yellow Yellow Urine Clarity Clear Clear Urine pH 6.0 5.0-9.0 Urine Specific Mag[place] 1.020 1.001-1.035 Urine Protein Trace H Negative Urine Ketones 2+ H Negative Urine Blood 2+ H Negative /uL Urine Nitrite Negative Negative Urine Bilirubin Negative Negative Urine Urobilinogen 2 H Negative mg/dL Urine Leukocyte Esterase Negative Negative /uL Urine RBC 65 0 - 3 /hpf Urine Microscopic WBC 2 0-3 /HPF Urine Squamous Epithelial Cells None seen <5 /hpf Urine Bacteria None seen None Seen /hpf Urine Creatinine 151.77 H 30.0-125.0 mg/dL Urine Protein/Creatinine Ratio 0.24 Urine Glucose Normal Normal mg/dL Urine Total Protein 36.3 H 1-14 mg/dL Urine Opiates Screen Neg NEGATIVE Urine Fentanyl Screen Neg NEGATIVE Urine Barbiturates Screen Neg NEGATIVE Urine Phencyclidine Screen Neg NEGATIVE Urine Amphetamines Screen Neg NEGATIVE Urine Benzodiazepines Screen Neg NEGATIVE Urine Cocaine Screen Neg NEGATIVE Urine Cannabinoids Screen Neg NEGATIVE White Blood Count 8.2 4.4-10.8 10^3/uL Red Blood Count 5.44 4.5-5.90 10^6/uL Hemoglobin 15.4 13.5-17.5 g/dL Hematocrit 45.1 41.0-53.0 % Mean Corpuscular Volume 82.9 80.0-100.0 fL Mean Corpuscular Hemoglobin 28.3 28.0-32.0 pg Mean Corpuscular Hemoglobin Concent 34.2 32.0-36.0 g/dL Red Cell Distribution Width 14.7 H 11.8-14.3 % Platelet Count 202 140-450 10^3/uL Mean Platelet Volume 8.8 6.9-10.8 fL Neutrophils (%) (Auto) 93.6 H 37.0-80.0 % Lymphocytes (%) (Auto) 4.9 L 10.0-50.0 % Monocytes (%) (Auto) 1.2 0.0-12.0 % Eosinophils (%) (Auto) 0.1 0.0-7.0 % Basophils (%) (Auto) 0.2 0.0-2.0 % Neutrophils # (Auto) 7.7 1.6-8.6 10 ^3/uL Lymphocytes # (Auto) 0.4 0.4-5.4 10 ^3/uL Monocytes # (Auto) 0.1 0-1.3 10 ^3/uL Eosinophils # (Auto) 0 0-0.8 10 ^3/uL Basophils # (Auto) 0 0-0.2 10 ^3/uL Nucleated Red Blood Cells 0.0 % Erythrocyte Sedimentation Rate 2 0-20 mm/hr Sodium Level 141 136-145 mmol/L Potassium Level 4.2 3.5-5.1 mmol/L Chloride Level 107 98-107 mmol/L Carbon Dioxide Level 23 20-31 mmol/L Anion Gap 11 5-15 Blood Urea Nitrogen 13 9-23 mg/dL Creatinine 1.36 H 0.700-1.30 mg/dL Glomerular Filtration Rate Calc 53 >90 mL/min BUN/Creatinine Ratio 9.6 L 10.0-20.0 Serum Glucose 103 74-106 mg/dL Calcium Level 8.7 8.7-10.4 mg/dL Prothrombin Time 10.9 9.3-11.8 sec Prothrombin Time INR 1.03 0.9-1.15 Activated Partial Thromboplast Time 26.1 24.5-34.5 SEC Phosphorus Level 3.0 2.4-5.1 mg/dL Magnesium Level 2.0 1.6-2.6 mg/dL Total Bilirubin 0.4 0.2-1.0 mg/dL Direct Bilirubin 0.2 <0.3 mg/dL Aspartate Amino Transferase (AST) 21 13-40 U/L Alanine Aminotransferase (ALT) 17 7-40 U/L Alkaline Phosphatase 64 46-116 U/L Total Protein 6.5 5.7-8.2 g/dL Albumin 4.0 3.2-4.8 g/dL Triglycerides Level 101 < 150 mg/dL Cholesterol Level 160 < 200 mg/dL LDL Cholesterol 96 < 100 mg/dL HDL Cholesterol 54 40-59 mg/dL Vitamin B12 Level 472 211-911 pg/mL Vitamin D 25-Hydroxy 23.5 L 30.0-100 ng/mL Troponin I High Sensitivity 10 </=54 ng/L Test 04/21/25 13:06 04/21/25 10:46 Range/Units Thyroid Stimulating Hormone (TSH) 1.08 0.55-4.78 uIU/mL Hemoglobin A1c 5.5 <5.7 % A1C Assessment Assessment/Plan Left frontotemporal shooting pain, likely due to trigeminal neuralgia Acute trigeminal neuralgia History of transverse myelitis, wheelchair-bound since 2018 History of ischemic strokes Hyperlipidemia Plan: -Start carbamazepine 100mg BID. -CT of the head reviewed with multiple chronic ischemic changes. -Ordered MRI of the brain w/o contrast -Pain medication as needed (tylenol/NSAIDS) -Rest of medical course per hospitalist Goals of care discussed with patient at bedside, FULL CODE Plan discussed with Dr. Cross Plan discussed with: Patient LEIGH GREGORY Apr 22, 2025 14:36 LOUIS CROSS MD Apr 23, 2025 10:49
[2025-04-22] MEDS: carBAMazepine 200 MG TAB PO ONE (15:41)
[2025-04-22] MEDS: CYANOCOBALAMIN 500 MCG TAB PO ONE (15:41)
--- NOTE | 2025-04-22 17:30 | DVH ---
PROCEDURE: MRI BRAIN HEAD WO CONTRAST Indication: Look for structural compression of trig nerve COMPARISON: 04/21/2025 TECHNIQUE: Multiplanar multisequence images of the brain are obtained. FINDINGS: There is no abnormal diffusion restriction. There are periventricular white matter changes most prono unced of the callososeptal interface. Mild global cerebral volume loss. There is no intracranial hemo rrhage. No extra-axial fluid collection, mass effect or midline shift. The ventricles are midline and normal in size. The cisterns are patent. Normal intracranial flow voids are preserved. No abnormal s usceptibility signal. Small bilateral mastoid effusions. Mucosal thickening of the ethmoids. 1 cm right maxillary sinus mu cosal retention cyst / polyp The visualized orbits are unremarkable. IMPRESSION: No acute cerebrovascular ischemia. Periventricular white matter changes along the callosal septal interface, possibly sequela demyelinat ing disease. Correlate with clinical history. MRI brain with contrast recommended to further charac terize. To evaluate the trigeminal nerve, recommend dedicated MRI brain with dedicated thin section imaging o f the trigeminal nerve, with and without contrast Small bilateral mastoid effusions. Mild global cerebral volume loss.
[2025-04-22] MEDS: carBAMazepine 200 MG TAB PO SCH (21:26)
[2025-04-22] MEDS: ATORVASTATIN 20 MG TAB PO SCH (21:27)
[2025-04-22] MEDS ORDERED: carBAMazepine 200 MG TAB PO SCH (22:00)
[2025-04-23 00:38] VITALS: BP 114/54; PULSE 73; RESP 18; TEMP 98.4; O2SAT 96
[2025-04-23 04:47] VITALS: BP 144/73; PULSE 74; RESP 19; TEMP 98.6; O2SAT 100
[2025-04-23 07:02] LABS: Hematocrit 42.5 % (41.0-53.0); Hemoglobin 14.2 g/dL (13.5-17.5); Mean Corpuscular Hemoglobin 27.8 pg (28.0-32.0); Mean Corpuscular Volume 82.9 fL (80.0-100.0); Nucleated Red Blood Cells % 0.0 %
[2025-04-23 07:12] LABS: Potassium 3.7 mmol/L (3.5-5.1); Sodium 143 mmol/L (136-145)
[2025-04-23 07:13] LABS: Anion Gap 9 (5-15); Carbon Dioxide 26 mmol/L (20-31)
[2025-04-23 07:18] LABS: BUN/Creatinine Ratio 9.8 (10.0-20.0); Blood Urea Nitrogen 15 mg/dL (9-23); Glucose 98 mg/dL (74-106)
[2025-04-23 07:23] LABS: Calcium 8.5 mg/dL (8.7-10.4); Chloride 108 mmol/L (98-107)
[2025-04-23 09:00] VITALS: BP 134/74; PULSE 70; RESP 17; TEMP 97.8; O2SAT 93
[2025-04-23] MEDS: CYANOCOBALAMIN 500 MCG TAB PO SCH (10:35)
[2025-04-23] MEDS ORDERED: ASPI-325 PO (10:40)
[2025-04-23] MEDS ORDERED: ATOR20TA50 PO (10:40)
[2025-04-23] MEDS ORDERED: CARB200T4 PO (10:40)
[2025-04-23] MEDS ORDERED: ERGO1CAP23 PO (10:40)
[2025-04-23] MEDS: SODIUM CHLORIDE 0.9% 250 ML IV ONE (10:45)
--- NOTE | 2025-04-23 10:54 | DVHPNRES ---
Progress Note Date Seen: Apr 23, 2025 Resident Creating Document: LEIGH GREGORY RESIDENT Has the PT tested + for MRSA If YES, has PT been informed?: No Medical Necessity Reason Pt with a Central, PICC or Fol: No Subjective Review of Systems Patient seen and examined at bedside. Patient stated that has not had any additional electric shock pain sensation since the start of the treatment with carbamazepine. Patient and family members stated that he was taking 100 mg of carbamazepine twice a day at home, sometimes inconsistently. We will increase carbamazepine to 200 mg b.i.d. we explained to the patient and family that this still consider low-dose and there will be still room for slight increase in the dosage after a couple of weeks. Patient can follow-up with primary care doctor as outpatient and depending on recurrent of the symptoms dosage could be increased later on to 300 mg b.i.d. patient denies any headache, migraine, fever, or any other additional symptoms. Patient stated that he is feeling better overall. ROS Constitutional: Denies weight loss, fever and chills. HEENT: Denies changes in vision and hearing. Respiratory: Denies shortness of breath and cough Cardiovascular: Denies chest discomfort or palpitations GI: Denies abdominal pain, nausea, vomiting and diarrhea. : Denies dysuria and urinary frequency. Musculoskeletal: Denies myalgias and joint pain Skin: Denies rash and pruritus. Neurological: Denies dizziness, headache, vision or hearing problems Objective vital signs Vital Sign Date Time Temp Pulse Resp B/P (MAP) Pulse Ox O2 Delivery O2 Flow Rate FiO2 04/23/25 09:00 97.8 70 17 134/74 (94) 93 97.8 04/23/25 08:00 Room Air* 0 21 Total Intake and Output 04/22/25 04/22/25 04/23/25 14:59 22:59 06:59 Intake Total 350 ml 760 ml 660 ml Output Total 725 ml 580 ml Balance 350 ml 35 ml 80 ml medications Current Medications Medications Dose Ordered Sig/Pily Route Start Time Stop Time Status Last Admin Dose Admin Enoxaparin Sodium 30 mg DAILY SC 04/22/25 10:00 04/23/25 10:35 30 MG Ondansetron HCl 4 mg Q6HPRN PRN IV 04/21/25 21:00 Ketorolac Tromethamine 15 mg Q6HPRN PRN IV 04/21/25 21:00 04/26/25 20:59 Ergocalciferol 50,000 unit Q7D PO 04/22/25 04:00 04/22/25 06:02 50,000 UNIT Aspirin 81 mg DAILY PO 04/22/25 10:00 04/23/25 10:35 81 MG Atorvastatin Calcium 40 mg HS PO 04/22/25 22:00 04/22/25 21:27 40 MG Cyanocobalamin 500 mcg DAILY PO 04/23/25 10:00 04/23/25 10:35 500 MCG Carbamazepine 200 mg BID PO 04/23/25 22:00 Examination Physical Examination General: Patient alert and oriented in person, place and time. Patient following commands. HEENT: Normocephalic, atraumatic, moist mucous membranes Respiratory/pulmonary: Clear lungs bilaterally, no associated crackles or wheezes. Cardiovascular: Normal heart sounds S1 and S2 with no associated murmurs Abdomen: Abdomen nondistended, there is no pain to palpation in any of the abdominal quadrants, no palpable masses. Extremities: There is significant inability to raise the right lower extremity. There is also weakness in the left lower extremity as well but patient is able to raise it with difficulty. Peripheral Pulses: 3+ Radial (R). 3+ Radial (L). 3+ Dorsalis pedis (R). 3+ Dorsalis pedis(L) Skin: No rashes or pruritus, there is no sacral edema present at this time. Neurological: Intact cranial nerves with no focal neurologic deficits. Bilateral upper extremities has symmetrical force and sensory. Bilateral face with no sensory deficits or weakness at this time. laboratory and microbiology Laboratory Tests 04/23/25 06:10 Test 04/23/25 06:10 Range/Units Serum Glucose 98 74-106 mg/dL Problem List/Assessment/Plan Problem List/Assessment/Plan Assessment/Plan Left frontotemporal shooting pain, likely due to trigeminal neuralgia Acute trigeminal neuralgia History of transverse myelitis, wheelchair-bound since 2018 History of ischemic strokes Hyperlipidemia Plan: -Increase dose of carbamazepine to 200mg BID. -CT of the head reviewed with multiple chronic ischemic changes. -Ordered MRI of the brain w/o contrast which came back unremarkable. if symptoms persist MRI of brain with trig nerve protocol could be ordered as Outptnt. -Pain medication as needed (tylenol/NSAIDS) -Rest of medical course per hospitalist -F/U with PCP, which could consider dosage increase of medication after couple of weeks. Goals of care discussed with patient at bedside, FULL CODE Plan discussed with Dr. Cross Plan discussed with: Patient My Orders My Orders Orders - LEIGH GREGORY Procedure Category Date Status Time Brain Head Wo Contrast MRI 04/22/25 Resulted 15:28 Carbamazepine Tablet PHA 04/23/25 In Process (Tegretol Tablet) 22:00 LEIGH GREGORY RESIDENT Apr 23, 2025 10:54
[2025-04-23] MEDS: carBAMazepine 200 MG TAB PO ONE (11:20)
[2025-04-23 11:29] LABS: Hepatitis B Surface Antigen Negative (Negative); Hepatitis C Antibody Negative (Negative)
[2025-04-23 13:00] VITALS: BP 132/58; PULSE 73; RESP 19; TEMP 98.1; O2SAT 97
--- NOTE | 2025-04-23 19:51 | DVHDSRES ---
Discharge Summary Date of Admission Resident Creating Document: VEDA NEWBY Apr 21, 2025 at 20:49 Date of Discharge: Apr 23, 2025 Admitting Diagnosis Headache Labs/Diagnostic Data: Laboratory Results Test 04/23/25 06:10 04/22/25 10:30 04/22/25 07:32 04/21/25 21:13 White Blood Count 8.6 10^3/uL (4.4-10.8) Red Blood Count 5.13 10^6/uL (4.5-5.90) Hemoglobin 14.2 g/dL (13.5-17.5) Hematocrit 42.5 % (41.0-53.0) Mean Corpuscular Volume 82.9 fL (80.0-100.0) Mean Corpuscular Hemoglobin 27.8 pg (28.0-32.0) Mean Corpuscular Hemoglobin Concent 33.5 g/dL (32.0-36.0) Red Cell Distribution Width 14.5 % (11.8-14.3) Platelet Count 201 10^3/uL (140-450) Mean Platelet Volume 8.9 fL (6.9-10.8) Neutrophils (%) (Auto) 71.0 % (37.0-80.0) Lymphocytes (%) (Auto) 18.3 % (10.0-50.0) Monocytes (%) (Auto) 9.6 % (0.0-12.0) Eosinophils (%) (Auto) 0.4 % (0.0-7.0) Basophils (%) (Auto) 0.7 % (0.0-2.0) Neutrophils # (Auto) 6.1 10 ^3/uL (1.6-8.6) Lymphocytes # (Auto) 1.6 10 ^3/uL (0.4-5.4) Monocytes # (Auto) 0.8 10 ^3/uL (0-1.3) Eosinophils # (Auto) 0 10 ^3/uL (0-0.8) Basophils # (Auto) 0.1 10 ^3/uL (0-0.2) Nucleated Red Blood Cells 0.0 % Sodium Level 143 mmol/L (136-145) Potassium Level 3.7 mmol/L (3.5-5.1) Chloride Level 108 mmol/L (98-107) Carbon Dioxide Level 26 mmol/L (20-31) Anion Gap 9 (5-15) Blood Urea Nitrogen 15 mg/dL (9-23) Creatinine 1.53 mg/dL (0.700-1.30) Glomerular Filtration Rate Calc 46 mL/min (>90) BUN/Creatinine Ratio 9.8 (10.0-20.0) Serum Glucose 98 mg/dL (74-106) Calcium Level 8.5 mg/dL (8.7-10.4) Urine Color Yellow (Yellow) Urine Clarity Clear (Clear) Urine pH 6.0 (5.0-9.0) Urine Specific [place] 1.020 (1.001-1.035) Urine Protein Trace (Negative) Urine Ketones 2+ (Negative) Urine Blood 2+ /uL (Negative) Urine Nitrite Negative (Negative) Urine Bilirubin Negative (Negative) Urine Urobilinogen 2 mg/dL (Negative) Urine Leukocyte Esterase Negative /uL (Negative) Urine RBC 65 /hpf (0 - 3) Urine Microscopic WBC 2 /HPF (0-3) Urine Squamous Epithelial Cells None seen /hpf (<5) Urine Bacteria None seen /hpf (None Seen) Urine Osmolality 679 mOsm/kg Urine Creatinine 151.77 mg/dL (30.0-125.0) Urine Protein/Creatinine Ratio 0.24 Urine Glucose Normal mg/dL (Normal) Urine Total Protein 36.3 mg/dL (1-14) Urine Opiates Screen Neg (NEGATIVE) Urine Fentanyl Screen Neg (NEGATIVE) Urine Barbiturates Screen Neg (NEGATIVE) Urine Phencyclidine Screen Neg (NEGATIVE) Urine Amphetamines Screen Neg (NEGATIVE) Urine Benzodiazepines Screen Neg (NEGATIVE) Urine Cocaine Screen Neg (NEGATIVE) Urine Cannabinoids Screen Neg (NEGATIVE) Erythrocyte Sedimentation Rate 2 mm/hr (0-20) C-Reactive Protein High Sensitivity 0.27 mg/dL (<1.0) Hepatitis B Surface Antigen Negative (Negative) Hepatitis C Antibody Negative (Negative) Prothrombin Time 10.9 sec (9.3-11.8) Prothrombin Time INR 1.03 (0.9-1.15) Activated Partial Thromboplast Time 26.1 SEC (24.5-34.5) Phosphorus Level 3.0 mg/dL (2.4-5.1) Magnesium Level 2.0 mg/dL (1.6-2.6) Total Bilirubin 0.4 mg/dL (0.2-1.0) Direct Bilirubin 0.2 mg/dL (<0.3) Aspartate Amino Transferase (AST) 21 U/L (13-40) Alanine Aminotransferase (ALT) 17 U/L (7-40) Alkaline Phosphatase 64 U/L (46-116) Total Protein 6.5 g/dL (5.7-8.2) Albumin 4.0 g/dL (3.2-4.8) Triglycerides Level 101 mg/dL (< 150) Cholesterol Level 160 mg/dL (< 200) LDL Cholesterol 96 mg/dL (< 100) HDL Cholesterol 54 mg/dL (40-59) Vitamin B12 Level 472 pg/mL (211-911) Vitamin D 25-Hydroxy 23.5 ng/mL (30.0-100) Test 04/21/25 16:09 04/21/25 13:06 04/21/25 10:46 Troponin I High Sensitivity 10 ng/L (</=54) Thyroid Stimulating Hormone (TSH) 1.08 uIU/mL (0.55-4.78) Hemoglobin A1c 5.5 % A1C (<5.7) Other Laboratory Tests 04/23/25 06:10 Brief Hx & Hospital Course: Mr. Barnes is a 79 year old male with prior medical history of transverse myelitis wheelchair bound, ischemic stroke, and hyperlipidemia, who presents to the ED with chief complaint of intense headache. The patient states that approximately three weeks ago he had spontaneous onset of intense sharp, electric pain in the left frontotemporal region. He describes this pain as intermittent, intensity 10/10, nonradiating, aggravated by eating, talking, and drinking, per the patient, rendering him unable to eat for the last 3 days. He states the pain lasts approximately up to two minutes, and occurs every day multiple times a day. Patient also reports unintentional weight loss of 30 lb in the past three months. Denies nausea, vomiting, changes in vision, facial weakness, upper extremity weakness, tearing from left eye, and other symptoms. On evaluation in the ED, patient was stable but hypertensive. Initial labs show CBC within normal range and BMP significant for creatinine 1.46. Chest xray shows no acute disease. Head CT shows no acute intracranial abnormality. He was started on IV fluids and IV pain regimen, and was admitted for further work up and monitoring. 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 We gave the patient pain management with acetaminophen 650 mg p.o. Toradol 15 mg IV q.6 hours PRN, dexamethasone 1 dose was given. For nausea we gave Zofran 4 mg IV q.6 hours PRN. We also did a CT head which showed no intracranial findings. Carbamazepine 100 mg b.i.d. was administered. Neurology consult. Who suggested continuation of pain management and a brain MRI. No acute cerebrovascular ischemia: Periventricular white matter changes along the callososeptal interface,possibly due to demyelinating disease was seen. For history of transverse myelitis, patient being wheelchair- bound. Due to his history of stroke we continued aspirin and atorvastatin. Patient also has been using tobacco and we counseled regarding cessation. Patient is now stable for discharge and there is no headache present. He is feeling much better and has agreed with the discharge plan. patient is to continue taking Carbamazipine 200 mg b.i.d. acc. to neurology recommendations. The treatment and discharge plan was discussed with the daughter. Pt is lying on bed General Appearance: Alert, Oriented X3, Cooperative, Mild distress HEENT: Otoscopic examination reveals tympanic membrane normal, no discharge, no erythema. Atraumatic, Mucous membranes moist/pink Respiratory: Clear to auscultation, Normal air movement, No added sounds Cardiovascular: Regular rate, Normal S1, Normal S2, No murmurs Abdominal/ : Active bowel sounds, Soft, no distention, no tenderness Extremities: No edema, Normal pulses, No tenderness/swelling Skin: No Significant rash, except past surgical scars Neuro: Normal speech, upper extremity motor strength normal, altered sensation in the ophthalmic dermatome and temporal area noted, Right lower extremity strength 1+, left lower extremity strength is 0. Cranial nerves intact. Psych/Mental Status: Mental status NL, Mood NL Nurse was there as livestock commission agent during examination Operations or Procedures PROCEDURE(s): CXRP - CHEST PORTABLE REASON: left facial pain and weakness ORDER NUMBER(s): [id number], ACCESSION NUMBER(s): [id number] CHEST RADIOGRAPH Indication: left facial pain and weakness IMPRESSION: No acute disease. PROCEDURE(s): HWOCT - HEAD WITHOUT CONTRAST REASON: left facial pain and weakness ORDER NUMBER(s): [id number], ACCESSION NUMBER(s): [id number] IMPRESSION: NO ACUTE INTRACRANIAL ABNORMALITY SEEN. PROCEDURE: MRI BRAIN HEAD WO CONTRAST Indication: Look for structural compression of trig nerve IMPRESSION: No acute cerebrovascular ischemia. Periventricular white matter changes along the callosal septal interface, possibly sequela demyelinating disease. Correlate with clinical history. MRI brain with contrast recommended to further characterize. To evaluate the trigeminal nerve, recommend dedicated MRI brain with dedicated thin section imaging of the trigeminal nerve, with and without contrast Small bilateral mastoid effusions. Mild global cerebral volume loss. Condition at Discharge: Stable Final Diagnosis/Problems List Intractable Headache, likely due to trigeminal neuralgia History of Transverse myelitis, wheelchair-bound History of stroke Hyperlipidemia Tobacco use Discharge Disposition: Home Discharge Instruct/Medications Diet: Regular Activity: No Restrictions, As Tolerated Follow Up/Referral: Follow up in the d/c clinic in one week Follow up with the PCP in one week Follow up in neurology outpatient clinic with Dr. Cross Medications: Carbamazepine 200mg twice daily for 30 days ( for Trigeminal neuralgia ) aspirin 81mg daily ( h/o stroke ) atorvastatin 20mg daily at night Ergocalciferol 06184 U once weekly for 8 weeks Scheduled Aspirin (Aspirin Low Dose), 81 MG PO DAILY Atorvastatin Calcium (Atorvastatin Calcium), 20 MG PO HS Carbamazepine (Carbamazepine), 200 MG PO BID Ergocalciferol (Vitamin D 07608 Unit), 50,000 UNIT PO QWEEKLY Discharge Statement: "Patient was advised to return to the ER or call 911 if any headaches, dizziness, shortness of breath, chest pain, abdominal pain, bleeding, fevers, or worsening of medical condition. Patient was counseled about treatment plan, medications, possible side effects, patientverbalized understanding. All questions were answered to the best of my ability. This discharge took greater then 30 minutes in planning, reviewing documentation, counseling the patient, and discussing with other team members." ASSESSMENT ASSESSMENT Assessment acute intractable/recurrent headache trigeminal neuralgia Date of Service: Apr 23, 2025 Billing Provider: REJI CROFT MD Common Visit Codes: 89194-FZH/OBS DISCH DAY >30min VEDA NEWBY RESIDENT Apr 23, 2025 19:51 REJI CROFT MD Apr 26, 2025 00:06
[2025-04-23] MEDS ORDERED: carBAMazepine 200 MG TAB PO SCH (22:00)
== END 2025-04-23 13:45 | disposition home health service (06) | DRG 74 ==
LOC: ER 10:11 → OVERFLOW 20:49 → WEST WING 23:39
PROVIDERS: ADMIT Internal Medicine Geriatric Medicine; ATTEND Internal Medicine Geriatric Medicine
DX: G50.0 Trigeminal neuralgia (principal); E86.0 Dehydration; E78.5 Hyperlipidemia, unspecified; Z72.0 Tobacco use; Z99.3 Dependence on wheelchair; Z80.9 Family history of malignant neoplasm, unspecified; Z88.0 Allergy status to penicillin; Z88.8 Allergy status to other drugs, medicaments and biological substances; Z86.73 Personal history of transient ischemic attack (TIA), and cerebral infarction without residual deficits; Z79.899 Other long term (current) drug therapy
CPT/HCPCS: 36415; 70450; 70551; 71045; 80048; 80061; 80076; 80307; 81001; 82306; 82570; 82607; 83036; 83735; 83935; 84100; 84156; 84443; 84484; 85025; 85610; 85652; 85730; 86141; 86803; 87340; 96361; 96374; 96375; 99291; G0378; J1100; J1885; J2470; J7060